=== PATIENT | female | born 1980 | race Caucasian/White ===

== ENCOUNTER 2021-03-28 10:01 | Emergency (ER) | payer OTHER ==
[2021-03-28 11:17] LABS: BILIRUBIN 1+ mg/dL (NEGATIVE); BLOOD NEGATIVE Ery/uL (NEGATIVE); CLARITY CLEAR (CLEAR); COLOR YELLOW (YELLOW); GLUCOSE (U) NORMAL (NORMAL); LEUKOCYTES NEGATIVE Leu/uL (NEGATIVE); NITRITE NEGATIVE (NEGATIVE); PROTEIN TRACE (LOW) mg/dL (NEGATIVE); UROBILINOGEN 0.2 mg/dL (0.2-1.0); pH 8.5 (5.0-9.0)
[2021-03-28 11:18] LABS: BASOPHIL 0.2 % (0-2); EOSINOPHIL 0 % (0-5); HCT 37.9 % (37.0-47.0); HGB 12.7 g/dl (12.5-16.0); MCH 29.9 pg (25.0-31.0); MCHC 33.5 g/dL (32.0-36.0); MCV 89.2 fL (78.0-100.0); MONOCYTE 7.2 % (0-12); MPV 9.5 fL (6.0-9.5); NEUTROPHIL 75.2 % (41-80); NRBC 0; PLT 262 K/uL (150-400); RBC 4.25 M/uL (4.20-5.40); RDW 13.8 % (11.5-14.0); WBC 4.9 K/uL (4.0-10.5)
[2021-03-28 11:21] LABS: BACTERIA TRACE; URINARY WBC RARE
[2021-03-28 11:26] LABS: ALBUMIN 3.4 g/dL (3.4-5.0); BILIRUBIN - TOTAL 0.3 mg/dL (0.2-1.0); BUN/CREAT RATIO (CALC) 10.3 RATIO; CREATININE 0.97 mg/dL (0.51-0.95); GLOBULIN (CALCULATION) 4.8 g/dL; POTASSIUM 3.1 mmol/L (3.5-5.1); TOTAL PROTEIN 8.2 g/dL (6.4-8.2)
[2021-03-28] MEDS ORDERED: PROAIR HFA8.5 GM INH (14:31)
[2021-03-28] MEDS ORDERED: ONDANSETRON ODT4 MG PO (14:31)
[2021-03-28] MEDS ORDERED: TESSALON PERLE100 MG PO (14:31)
== END 2021-03-28 14:55 | disposition home or self-care (01) ==
LOC: FER 10:01
PROVIDERS: Emergency Medicine
DX: U07.1 COVID-19 (principal); Z88.5 Allergy status to narcotic agent
CPT/HCPCS: 36415; 80053; 81001; 82150; 83690; 85025; J1885; J2405; J7030; U0002